=== PATIENT | female | born 1960 | race Caucasian/White ===

== ENCOUNTER 2023-03-28 07:35 | Outpatient (OUT) | payer BC, SELFPAY ==
--- NOTE | 2023-03-28 | ECG_ITS ---
The [facility] Test Date: 2023-03-28 Pat Name: JORY POLANCO Department: Room: - Gender: Female [id number]: : 1960 Requested By: KOBI MARTÍNEZ Order Number: [id number] Reading MD: DAVID MEADE Measurements Intervals Success Rate: 67 P: 59 CT: 221 QRS: 55 QRSD: 99 T: 68 QT: 390 QTc: 413 Interpretive Statements SINUS RHYTHM WITH SINUS ARRHYTHMIA WITH FIRST DEGREE AV BLOCK LOW QRS VOLTAGE IN PRECORDIAL LEADS [QRS DEFLECTION < 1.0 mV IN CHEST LEADS] No previous ECG available for comparison Electronically Signed On 03-29-2023 6:52:55 EST by DAVID MEADE
--- NOTE | 2023-03-28 08:02 | XR_ITS ---
The [address] [address] Patient Name: JORY POLANCO MRN: [id number] date: 1960 Sex: F Assigned Patient Location: CARD Current Patient Location: CARD Accession/Order Number: [id number] Exam Date: 03/28/2023 08:10 Report Date: 03/28/2023 08:38 At the request of: KOBI MARTÍNEZ Procedure: XR chest 2V PROCEDURE: XR chest 2V DATE: 03/28/2023 8:10 AM EST COMPARISONS: None. CLINICAL INDICATION: 62 years Female Preoperative Examination Z01.818 FINDINGS: The cardiomediastinal silhouette and pulmonary vasculature are within normal limits. The lungs are clear. There is no evidence of pleural effusion or pneumothorax. XR/XR chest 2V IMPRESSION: Chest radiograph is within normal limits. Electronically authenticated by: HERMELINDO GRIDER Date: 03/28/2023 08:38
[2023-03-28 09:31] LABS: Basophils Absolute Auto 0.1 10^3/uL (0.0-0.1); Basophils Percent Auto 0.8 % (0.2-2.0); Eosinophils Absolute Auto 0.2 10^3/uL (0.0-0.7); Eosinophils Percent Auto 2.2 % (0.9-7.0); Hematocrit 42.4 % (36.0-48.0); Hemoglobin 14.2 g/dL (12.0-16.0); Immature Granulocytes Abs Auto 0.01 10^3/uL (0.00-0.03); Immature Granulocytes Pct Auto 0.1 % (0.0-0.5); Lymphocytes Absolute Auto 2.6 10^3/uL (1.2-3.8); Lymphocytes Percent Auto 33.3 % (20.5-60.0); Mean Corpuscular HGB Conc 33.5 g/dL (29.9-35.2); Mean Corpuscular Hemoglobin 30.5 pg (26.7-34.0); Mean Platelet Volume 9.8 fL (9.5-13.5); Monocytes Absolute Auto 0.5 10^3/uL (0.3-0.8); Monocytes Percent Auto 6.9 % (1.7-12.0); Neutrophils Absolute Auto 4.4 10^3/uL (1.4-6.5); Neutrophils Percent Auto 56.7 % (43.0-75.0); Platelet Count 328 10^3/uL (150-450); Red Blood Count 4.66 10^6/uL (4.20-5.40); White Blood Count 7.7 10^3/uL (4.0-11.0)
[2023-03-28 11:37] LABS: Anion Gap 13.9; BUN Creatinine Ratio 18.4; Calcium 9.1 mg/dL (8.5-10.1); Carbon Dioxide 27.4 mmol/L (21.0-32.0); Chloride 101 mmol/L (98-107); Estimated GFR (African America >60 (>=60); Estimated GFR (Non-African Ame >60 (>=60); Glucose 87 mg/dL (74-106); Potassium 4.3 mmol/L (3.5-5.1); Sodium 138 mmol/L (136-145)
== END 2023-03-28 07:36 | disposition home or self-care (01) ==
PROVIDERS: PCP Internal Medicine
DX: Z01.810 Encounter for preprocedural cardiovascular examination (principal)
CPT/HCPCS: 36415; 71046; 80048; 85025; 93005